=== PATIENT | male | born 1960 | race Caucasian/White ===

== ENCOUNTER 2016-06-05 00:51 | Day surgery (SDC) | payer OTHER ==
[2016-06-05] VITALS (11 sets, daily range): BP systolic 102–148; BP diastolic 50–80; PULSE 64–79; RESP 13–18; O2SAT 94–96
[~2016-06-05] VITALS: Ht 182.9 cm; Wt 154.0 kg
[~2016-06-05 00:51] MED LIST: ASPI-973 PO; BUPR150T8 PO; CHOL10008 PO; LISI1TAB9 PO; LORA1TAB PO; MULT1CAP33 PO; OMEP20TA24 PO; TRAZ-115 PO
[2016-06-05] MEDS ORDERED: 0.9% Sodium Chloride 1,000 ML IV ONE (07:11)
[2016-06-05 07:33] LABS: BASOPHILS % (AUTO) 0.4 % (0-3); EOSINOPHILS % (AUTO) 3.4 % (0-5); MONOCYTES % (AUTO) 11.4 % (4-12); Mean Corpuscular Hemoglobin 28.6 pg (27.0-35.0); Mean Corpuscular Volume 84.8 fL (81-100); NEUTROPHILS % (AUTO) 51.5 % (40-74); Platelet Count 230 bil/L (150-400)
[2016-06-05] MEDS ORDERED: biotin PO (07:59)
[2016-06-05] MEDS ORDERED: SAWP1CAP PO (07:59)
[2016-06-05] MEDS ORDERED: B12 PO (07:59)
[2016-06-05] MEDS ORDERED: ASCO100089 PO (07:59)
[2016-06-05] MEDS ORDERED: 0.9% Sodium Chloride 1,000 ML ONE (08:23)
[2016-06-05] MEDS ORDERED: Nitroglycerin 50,000 mcg/250 mL D5W Premix IV ONE (08:23)
[2016-06-05] MEDS ORDERED: Heparin 1,000 Unit/mL 10 mL Inj ONE ×2 (08:23→08:59)
[2016-06-05] MEDS ORDERED: 0.9% Sodium Chloride 500 ML ONE (08:24)
[2016-06-05] MEDS ORDERED: Phenylephrine/NS-PF 100 mCg/mL 5 mL Syringe IVPUSH ONE (08:24)
[2016-06-05] MEDS ORDERED: Verapamil 2.5 mg/mL 2 mL Inj ONE (08:30)
--- NOTE | 2016-06-05 08:49 | NUR ---
Pt's ns @ 100cc/hr started at 07:30, at 0800 Dr Yeboah here to see patient, GFR result is back at 58, physician informed and NS hydration protocol started at 500cc to bolus over 1 hour.MONIQUE Adams slab polisher nurse informed that total 305 cc infused so far.
[2016-06-05] MEDS ORDERED: fentaNYL-PF 50 mCg/mL 2 mL Inj ONE ×2 (08:59→09:27)
--- NOTE | 2016-06-05 13:30 | NUR ---
TR BAND REMOVED OVER APPROX [address] ADAMS HERE TO SEE PATIENT PRIOR TO DISCHARGE. RIGHT RADIAL SITE WITHOUT BLEEDING/OOZING OR HEMATOMA. INSTRUCTIONS REVIEWED WITH PATIENT AND SPOUSE, PRAVASTATIN ORDER FAXED TO [facility]. PT AMBULATORY 30 MINUTES PRIOR TO DISCHARGE AND AT DISCHARGE.
--- NOTE | 2016-06-06 01:02 | CS94 ---
[place] [id number] DIAGNOSTIC CARDIAC CATHETERIZATION PATIENT: SHY ERAZO : 1960 MR#: [id number] ADMIT: 06/05/2016 JOB ID: [id number] SERVICE DATE: 06/05/2016 PROCEDURE PERFORMED: Left heart catheterization with coronary angiography. INDICATIONS: This is a 55-year-old man with increased shortness of breath, poor exercise tolerance on recent exercise testing, possible area of ischemia affecting the inferolateral wall. He presents for further assessment by angiography. DESCRIPTION OF PROCEDURE: Informed consent was obtained. Patient was brought to laboratory chemical assistant. Bilateral groins were prepped and draped in sterile fashion. The area of the right radial artery was prepped and draped in sterile fashion. Next, the area over the right radial artery was anesthetized with lidocaine. Using an Angiocath and double wall technique access was obtained and a 6-Bermudian sheath was advanced. Next, a 6-B[place] JL 3.5 catheter was advanced over wire and used to cannulate the left coronary artery and angiography was obtained. This catheter was removed over an exchange length wire. A 6-[place]udian JR-4 catheter was advanced over wire and used to cannulate the right coronary artery and angiography was obtained. This catheter was also passed under left ventricle fluoroscopic guidance; therefore, left ventricular pressure tracings were obtained, and following pullback, aortic pressure tracings were obtained. The case was ended. Catheters and wires were removed and hemostasis was achieved via placement of a TR band. There were no complications. FINDINGS: CORONARIES: 1. Left main: This does not have any significant disease. 2. Left anterior descending artery: This has evidence of about 40% stenosis in the early part of the vessel and no evidence of obstructive lesion. 3. Circumflex artery: This vessel gives rise to 1st obtuse marginal versus ramus intermedius which has no evidence of obstructive disease. Branching circumflex branch has two branches which have somewhat diffuse 30% stenoses in the proximal segment. 4. Right coronary artery: This vessel is large and dominant. There is a evidence of 30% stenosis in the branch of the posterolateral branch. 5. Left ventricular pressure is in the range of 15. No gradient on pullback. IMPRESSION: No evidence for significant obstructive coronary artery disease to explain the patient's symptoms or the abnormality found on stress testing. MTDD
== END 2016-06-05 23:59 | disposition home or self-care (01) ==
LOC: SOUO 00:51
PROVIDERS: ATTEND Internal Medicine
DX: R94.39 Abnormal result of other cardiovascular function study (principal); R06.02 Shortness of breath; I10 Essential (primary) hypertension; G47.33 Obstructive sleep apnea (adult) (pediatric); G25.81 Restless legs syndrome; F41.9 Anxiety disorder, unspecified
CPT/HCPCS: 36415; 80048; 85025; 93005; 93458; C1769; C1894; J1200; J1644; J2060; J2250; J3010; J7030; J7040; Q9967